=== PATIENT | male | born 1960 | race Caucasian/White ===

== ENCOUNTER 2020-09-28 17:29 | Emergency (ER) | payer OTHER ==
[~2020-09-28] VITALS: Ht 193 cm; Wt 98.9 kg
[2020-09-28] MEDS ORDERED: LISINOPRIL-HCT1 EAC2 PO (17:42)
[2020-09-28] MEDS ORDERED: HYDROCODON-ACE1 EA10 PO (17:56)
== END 2020-09-28 18:06 | disposition home or self-care (01) ==
LOC: ED 17:29
DX: S39.012A Strain of muscle, fascia and tendon of lower back, initial encounter (principal); Z88.0 Allergy status to penicillin; Z79.899 Other long term (current) drug therapy; X58.XXXA Exposure to other specified factors, initial encounter; Y93.H1 Activity, digging, shoveling and raking
CPT/HCPCS: 96372; 99283; J1885

== ENCOUNTER 2020-10-03 08:03 | Emergency (ER) | payer OTHER ==
[~2020-10-03] VITALS: Ht 193 cm; Wt 100.7 kg
[~2020-10-03 08:03] MED LIST: HYDROCODON-ACE1 EA10 PO; LISINOPRIL-HCT1 EAC2 PO
[2020-10-03] MEDS ORDERED: CYCLOBENZAPRINE10 MG PO (08:55)
[2020-10-03] MEDS ORDERED: METHYLPREDNISOLO4 M1 PO (08:55)
--- OUTSIDE RECORDS SUMMARY | 2020-10-03 08:56 | XMS ---
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 Van has no Care Guidelines for this patient. [place] VISIT COUNT (12 MO.) 1 [facility] 2 [facility] TOTAL 3 NOTE: Visits indicate total known visits. ED/C VISIT TRACKING (12 MO.) 10/03/2020 08:04 [facility] [place] TYPE: Emergency COMPLAINT: - BACK PAIN 09/28/2020 17:29 [facility] [place] TYPE: Emergency COMPLAINT: - BACK PAIN DIAGNOSES: - Allergy status to penicillin - Activity, digging, shoveling and raking - Exposure to other specified factors, initial encounter - Dorsalgia, unspecified - Other intermediate (current) drug therapy - Strain of muscle, fascia and tendon of lower back, initial encounter 03/19/2020 09:32 [facility] TYPE: Emergency DIAGNOSES: - Essential (primary) hypertension - Chest Pain - Other chest pain INPATIENT VISIT TRACKING (12 MO.) No inpatient visits to display in this time frame [email or web address]
== END 2020-10-03 09:05 | disposition home or self-care (01) ==
LOC: ED 08:03
DX: M54.5 Low back pain (principal); I10 Essential (primary) hypertension; Z88.0 Allergy status to penicillin; Z79.899 Other long term (current) drug therapy
CPT/HCPCS: A9270

== ENCOUNTER 2021-02-13 20:43 | Emergency (ER) | payer OTHER ==
[~2021-02-13] VITALS: Ht 195.6 cm; Wt 98.9 kg
[~2021-02-13 20:43] MED LIST changes: +CYCLOBENZAPRINE10 MG PO; +METHYLPREDNISOLO4 M1 PO
== END 2021-02-13 23:26 | disposition home or self-care (01) ==
LOC: ED 20:43
DX: S61.213A Laceration without foreign body of left middle finger without damage to nail, initial encounter (principal); W22.8XXA Striking against or struck by other objects, initial encounter; Z23 Encounter for immunization; I10 Essential (primary) hypertension; Z88.0 Allergy status to penicillin; Z79.899 Other long term (current) drug therapy
CPT/HCPCS: 90471; 90715; 99282-25